=== PATIENT | female | born 1955 | race Caucasian/White ===

== ENCOUNTER 2023-04-20 08:29 | Emergency (ER) | payer OTHER ==
--- OUTSIDE RECORDS SUMMARY | 2023-04-20 08:32 | XMS REPORT | Continuity of Care Document ---
:1955 Author Organization [facility] Address [address] [facility] [address] [place] [address] Care Team Providers Name Role Phone [facility] Attending Clinician Unavailable [facility] Admitting Clinician Unavailable Payers Payer Name Policy Type Policy Number Effective Date Expiration Date [facility] [id number] (MEDICARE REPLACEMENT/ADVANTAGE - PPO) Problems This patient has no known problems. Allergies, Adverse Reactions, Alerts This patient has no known allergies or adverse reactions. Medications This patient has no known medications. Procedures This patient has no known procedures. Encounters Start End Encounter Admission Attending Care Care Encounter Source Date/Time Date/Time Type Type Clinicians Facility Department ID 2023-01-18 2023-01-18 Outpatient [facility]IV [id number] [facility] 00:00:00 00:00:00 [facility] [id number] [facility] 2022-08-15 2022-08-15 Outpatient [facility] PR[facility] PRIV [id number] [facility] 00:00:00 00:00:00 [facility]_S [id number] Med[facility] 2022-08-14 2022-08-14 Outpatient [facility] PR[facility] PRIV [id number] [facility] 00:00:00 00:00:00 _[facility]_S [id number] Medica l 2021-08-09 2021-08-09 Outpatient [facility] PR[facility] [id number] [facility] 00:00:00 00:00:00 [facility] [id number] Med[facility] l Results This patient has no known results.
[2023-04-20] MEDS ORDERED: IBUPROFEN 400 MG TAB ONE (09:10)
--- NOTE | 2023-04-20 09:33 | RAD REPORT ---
EXAM DESCRIPTION: RAD - Forearm Right - 04/20/2023 9:07 am CLINICAL HISTORY: Right arm pain status post fall FINDINGS: No fracture is seen involving the radius/ulna
--- NOTE | 2023-04-20 09:35 | RAD REPORT ---
EXAM DESCRIPTION: RAD - Hand Right 3 View - 04/20/2023 9:07 am CLINICAL HISTORY: Right hand pain status post injury FINDINGS: A 5 millimeter curvilinear bony density lies lateral to the base of the fifth metacarpal. This is suspicious for an avulsion fracture. No dislocation seen
--- NOTE | 2023-04-20 10:08 | ER ---
Nurse's Notes [facility] Name: Joyce Fraga Age: 67 yrs Sex: Female : 1955 Arrival Date: 04/20/2023 Time: 08:29 Bed 13 Private MD: Diagnosis: Right fifth metacarpal fracture Presentation: 04/20 08:37 Chief complaint: Right wrist and forearm pain 7/10 after mechanical fall from standing hb yesterday. Coronavirus screen: At this time, the client does not indicate any symptoms associated with coronavirus-19. Ebola Screen: No symptoms or risks identified at this time. Initial Sepsis Screen: Does the patient meet any 2 criteria? No. Patient's initial sepsis screen is negative. Does the patient have a suspected source of infection? No. Patient's initial sepsis screen is negative. Risk Assessment: Do you want to hurt yourself or someone else? Patient reports no desire to harm self or others. Onset of symptoms was April 19, 2023. 08:37 Method Of Arrival: Ambulatory hb 08:37 Acuity: AISHA 4 hb Historical: - Allergies: 08:38 No Known Allergies; hb - PMHx: 08:38 Hypertension; High Cholesterol; hb - PSHx: 08:38 None; hb - Immunization history:: Adult Immunizations up to date. - Social history:: Smoking status: Patient denies any tobacco usage or history of. Screenin:07 [facility] ED Fall Risk Assessment (Adult) History of falling in the last 3 months, nj1 including since admission Yes- single mechanical fall (1 pt) Confusion or Disorientation No (0 pts) Intoxicated or Sedated No (0 pts) Impaired Gait No (0 pts) Mobility Assist Device Used No (0 pt) Altered Elimination No (0 pt) Score/Fall Risk Level 0 - 2 = Low Risk Oriented to surroundings, Maintained a safe environment, Hourly rounding (assess needs \T\ fall precautionary measures) done. Abuse screen: Denies threats or abuse. Denies injuries from another. Nutritional screening: No deficits noted. Tuberculosis screening: No symptoms or risk factors identified. Assessment: 09:06 General: Appears in no apparent distress. comfortable, Behavior is calm, cooperative, nj1 appropriate for age. Pain: Complains of pain in right arm Pain currently is 7 out of 10 on a pain scale. Neuro: Level of Consciousness is awake, alert, obeys commands, Oriented to person, place, time, situation. Cardiovascular: Patient's skin is warm and dry. Respiratory: Airway is patent Respiratory effort is even, unlabored. Musculoskeletal: Reports pain in right arm. Vital Signs: 08:37 BP 153 / 90; Pulse 74; Resp 16; Temp 98; Pulse Ox 100% ; Weight 49.9 kg; Height 5 ft. 1 hb in. ; Pain 7/10; 10:00 BP 145 / 71; Pulse 65; Pulse Ox 99% on R/A; nj1 10:25 Pulse 18; Pain 3/10; nj1 08:37 Body Mass Index 20.78 (49.90 kg, 154.94 cm) hb 08:37 Pain Scale: Adult hb 10:25 Pain Scale: Adult [facility] ED Course: 08:31 Patient arrived in ED. rg4 08:33 Yovani Angelo PA is PHCP. jmm 08:33 Nii Navarrete MD is Attending Physician. jmm 08:38 Triage completed. hb 08:38 Arm band placed on. hb 08:58 Riddhi Wright, NICOLÁS is Primary Nurse. nj1 09:08 Patient has correct armband on for positive identification. Bed in low position. Call [facility] light in reach. 09:09 Forearm Right XRAY In Process Unspecified. EDMS 09:09 Hand Right 3 View XRAY In Process Unspecified. EDMS 09:45 Orthoglass splint: Ulnar gutter/Boxer splint applied on right forearm. Sling applied to nj1 right arm. 10:07 Stas Granados MD is Referral Physician. jmm 10:10 Jluis Delatorre MD is Referral Physician. jmm 10:10 Michael Blackwood MD is Referral Physician. jmm 10:10 Nino Mora MD is Referral Physician. jmm 10:10 Gunnar Rivero MD is Referral Physician. jm 10:25 No provider procedures requiring assistance completed. nj1 10:25 Patient did not have IV access during this emergency room visit. nj1 Administered Medications: 09:06 Drug: Ibuprofen PO 400 mg Route: PO; nj1 10:27 Follow up: Response: No adverse reaction; Pain is decreased nj Medication: 10:25 VIS not applicable for this client. nj1 Outcome: 10:07 Discharge ordered by . reji 10:25 Discharged to home ambulatory. nj1 10:25 Condition: stable 10:25 Discharge instructions given to patient, Instructed on discharge instructions, follow nj1 up and referral plans. medication usage, Demonstrated understanding of instructions, follow-up care, medications, splint care. 10:26 Patient left the ED. nj1 Signatures: Dispatcher [employer] EDMS Yovani Angelo PA PA jmm Baxter, Heather, RN RN Alena Padilla 4 Riddhi Wright RN RN nj1 Corrections: (The following items were deleted from the chart) 10:37 10:36 Patient left the ED. nj1 nj1
--- NOTE | 2023-04-20 10:09 | EDPHYS ---
Physician Documentation [facility] Name: Joyce Fraga Age: 67 yrs Sex: Female : 1955 Arrival Date: 04/20/2023 Time: 08:29 Bed 13 Private MD: ED Physician Nii Navarrete HPI: 04/20 08:37 This 67 yrs old Female presents to ER via Ambulatory with complaints of Hand Injury. [facility] 08:37 Onset: The symptoms/episode began/occurred acutely, yesterday. This is a 67/f with a jmm history of htn, hlp that presents to the ED with complaints of right wrist pain, right hand pain beginning after a fall which occurred last night. Patient fell while playing softball. Denies other injury. . Historical: - Allergies: 08:38 No Known Allergies; hb - PMHx: 08:38 Hypertension; High Cholesterol; hb - PSHx: 08:38 None; hb - Immunization history:: Adult Immunizations up to date. - Social history:: Smoking status: Patient denies any tobacco usage or history of. ROS: 08:37 Constitutional: Negative for fever, chills, and weight loss, Cardiovascular: Negative jmm for chest pain, palpitations, and edema, Respiratory: Negative for shortness of breath, cough, wheezing, and pleuritic chest pain. 08:37 MS/extremity: Positive for pain. 08:37 All other systems are negative. Exam: 08:37 Constitutional: This is a well developed, well nourished patient who is awake, alert, jmm and in no acute distress. Head/Face: atraumatic. Eyes: EOMI, no conjunctival erythema appreciated ENT: Moist Mucus Membranes Neck: Trachea midline, Supple Chest/axilla: Normal chest wall appearance and motion. Cardiovascular: Regular rate and rhythm. No edema appreciated Respiratory: Normal respirations, no respiratory distress appreciated Abdomen/GI: Non distended Back: Normal ROM Skin: General appearance color normal 08:37 Musculoskeletal/extremity: swelling noted to the right ulnar styloid region. full radial pulse, compartments are soft. Vital Signs: 08:37 BP 153 / 90; Pulse 74; Resp 16; Temp 98; Pulse Ox 100% ; Weight 49.9 kg; Height 5 ft. 1 hb in. ; Pain 7/10; 10:00 BP 145 / 71; Pulse 65; Pulse Ox 99% on R/A; nj1 10:25 Pulse 18; Pain 3/10; nj1 08:37 Body Mass Index 20.78 (49.90 kg, 154.94 cm) hb 08:37 Pain Scale: Adult hb 10:25 Pain Scale: Adult nj1 MDM: 08:37 Patient medically screened. [facility] 10:04 Differential diagnosis: closed fracture, contusion. Data reviewed: vital signs, nurses [facility] notes, radiologic studies, plain films. I considered the following discharge prescriptions or medication management in the emergency department Medications were administered in the Emergency Department. See MAR. Independent interpretation of the following test(s) in the Emergency Department X-Ray: My interpretation is no fracture appreciated. Counseling: I had a detailed discussion with the patient and/or guardian regarding: the historical points, exam findings, and any diagnostic results supporting the discharge/admit diagnosis, radiology results, the need for outpatient follow up, to return to the emergency department if symptoms worsen or persist or if there are any questions or concerns that arise at home. 04/20 08:43 Order name: Forearm Right XRAY; Complete Time: 09:36 [facility] 04/20 08:43 Order name: Hand Right 3 View XRAY; Complete Time: 09:36 [facility] 04/20 08:43 Order name: Misc. Order: ice pack; Complete Time: 08:50 [facility] 04/20 09:40 Order name: Ulnar Gutter splint; Complete Time: 10:05 [facility] 04/20 09:49 Order name: Sling; Complete Time: 10:05 [facility] Administered Medications: 09:06 Drug: Ibuprofen PO 400 mg Route: PO; [facility] 10:27 Follow up: Response: No adverse reaction; Pain is decreased [facility] Disposition: 11:18 Co-signature as Attending Physician, Nii Navarrete MD I reviewed the patient's care rt provided by the Advanced Practice Provider and agree with the diagnosis and treatment plan. Disposition Summary: 04/20/23 10:07 Discharge Ordered Location: Home [facility] Condition: Stable [facility] Diagnosis - Right fifth metacarpal fracture [facility] Followup: [facility] - With: Stas Granados MD - When: 2 - 3 days - Reason: Recheck today's complaints, Continuance of care, Re-evaluation by your physician Followup: [facility] - With: Jluis Delatorre MD - When: 2 - 3 days - Reason: Recheck today's complaints, Continuance of care, Re-evaluation by your physician Followup: [facility] - With: Michael Blackwood MD - When: 2 - 3 days - Reason: Recheck today's complaints, Continuance of care, Re-evaluation by your physician Followup: [facility] - With: Nino Mora MD - When: 2 - 3 days - Reason: Recheck today's complaints, Continuance of care, Re-evaluation by your physician Followup: [facility] - With: Gunnar Rivero MD - When: 2 - 3 days - Reason: Recheck today's complaints, Continuance of care, Re-evaluation by your physician Discharge Instructions: - Discharge Summary Sheet [facility] - Metacarpal Fracture [facility] - RICE Therapy for Routine Care of Injuries [facility] Forms: - Medication Reconciliation Form [facility] - Thank You Letter [facility] - Antibiotic Education [facility] Prescriptions: - orphenadrine citrate 100 mg Oral Tablet Sustained Release - take 1 tablet by ORAL route 2 times per day As needed; 20 tablet; Refills: 0, [facility] Product Selection Permitted Signatures: Dispatcher [employer] EDMS Yvoani Angelo PA PA Mya Elmore, RN RN Nii Colindres MD MD rt Riddhi Wright, RN RN nj1
[2023-04-20 10:49] VITALS: TEMP 98
[2023-04-20 10:50] VITALS: BP 145/71; O2SAT 99
== END 2023-04-20 10:36 | disposition home or self-care (01) ==
LOC: ER 08:29
PROC: 2W3EX1Z Immobilization of Right Hand using Splint (ICD-10-PCS; principal; 2023-04-20)
DX: S62.306A Unspecified fracture of fifth metacarpal bone, right hand, initial encounter for closed fracture (principal)
CPT/HCPCS: 99284